=== PATIENT | female | born 1960 | race Caucasian/White ===

== ENCOUNTER 2017-04-12 12:23 | Emergency (ER) | payer OTHER ==
[~2017-04-12] VITALS: Wt 62.0 kg
[2017-04-12] MEDS ORDERED: HYDROCODONE/APAP (5/325) TAB PO ONE (13:00)
--- NOTE | 2017-04-12 13:49 | RADRPT ---
PROCEDURE: XR Tibia and Fibula. CLINICAL INDICATION: Right lower leg pain after trauma TECHNIQUE: 2 views of the right tibia and fibula are available for review. COMPARISON: None available FINDINGS: There is normal mineralization and alignment of the bones of the right tibia and fibula. There is n o evidence of acute fracture or dislocation. The suboptimally visualized joint spaces appear grossl y within normal limits. The soft tissues are unremarkable. IMPRESSION: 1. Unremarkable right tibia and fibula x-ray series. RPTAT: KK .Gene Rees MD, MD Date Time Electronically viewed and signed by .Gene Rees MD, on 04/12/2017 13:49 .B/
--- NOTE | 2017-04-12 13:49 | RADRPT ---
PROCEDURE: Right ankle series. CLINICAL INDICATION: Right ankle pain TECHNIQUE: Three views of the right ankle are available for review COMPARISON: None available FINDINGS: There is normal mineralization and alignment of the bones of the right ankle. No acute fracture or dislocation is seen. Joint spaces are well maintained. No osteophytes or erosions are identified. No joint effusion is identified. There is mild diffuse soft tissue swelling.. IMPRESSION: 1. Soft tissue swelling without evidence of fracture or dislocation. RPTAT: KK .Gene Rees MD, MD Date Time Electronically viewed and signed by .Gene Rees MD, on 04/12/2017 13:48 .B/
--- NOTE | 2017-04-12 13:50 | RADRPT ---
PROCEDURE: Right foot series. CLINICAL INDICATION: Right foot pain after trauma TECHNIQUE: Three views of the right foot are available for review. COMPARISON: None available FINDINGS: There is normal mineralization and alignment of the bones of the right foot. Lisfranc's joint appea rs intact. No acute fracture or dislocation is seen. The soft tissues are unremarkable. IMPRESSION: 1. Unremarkable right foot series. RPTAT: KK .Gene Rees MD, MD Date Time Electronically viewed and signed by .Gene Rees MD, MD on 04/12/2017 13:50 .B/
--- NOTE | 2017-04-12 14:00 | ERD ---
ER Documentation Chief Complaint Date/Time DATE: 04/12/17 TIME: 13:56 Chief Complaint RIGHT LEG/FOOT INJURY HPI This a 57-year-old female who presents the emergency department today complaining of right lower leg pain after she was at a store looking at [place] and a eight-foot granite slab fell downward on top of her leg. Denies any previous trauma. Denies any fevers or chills. ROS All systems reviewed and are negative except as per history of present illness. Medications Home Meds Active Scripts Acetaminophen* (Tylophen*) 500 Mg Capsule, 1 CAP PO Q6H Y for PAIN AND OR ELEVATED TEMP, #30 CAP Prov:ISMAEL COLON PA-C 04/12/17 Hydrocodone/Acetaminophen ([place] 5-325 Tablet) 1 Each Tablet, 1 TAB PO Q6H Y for PAIN, #10 TAB Prov:ISMAEL COLON PA-C 04/12/17 PMhx/Soc Medical and Surgical Hx: pt denies Surgical Hx Hx Respiratory Disorders: Yes (PULMONARY HYPERTENSION) Hx Alcohol Use: No Hx Substance Use: No Hx Tobacco Use: No Smoking Status: Never smoker Physical Exam Vitals Vital Signs Date Time Temp Pulse Resp B/P Pulse Ox O2 Delivery O2 Flow Rate FiO2 04/12/17 12:29 99.3 86 17 114/63 98 Physical Exam Const: NAD Head: Atraumatic Eyes: Normal Conjunctiva ENT: Normal External Ears, Nose and Mouth. Neck: Full range of motion..~ No meningismus. Resp: Clear to auscultation bilaterally Cardio: Regular rate and rhythm, no murmurs Abd: Soft, non tender, non distended. Normal bowel sounds Skin: Abrasion right tibia Back: No midline or flank tenderness Ext: Right leg with no obvious deformity. Effusion over lateral aspect of ankle. Pulses 2+. Distal neurovascularly intact. Neur: Awake and alert Psych: Normal Mood and Affect Results 24 hrs Current Medications Medications (Trade) Dose Ordered Sig/Rita Route PRN Reason Start Time Stop Time Status Last Admin Dose Admin Acetaminophen/ Hydrocodone Bitart ([place] (5/325)) 1 tab ONCE ONCE PO 04/12/17 13:00 04/12/17 13:01 DC 04/12/17 13:28 DIAGNOSTIC IMAGING REPORT Patient: CHAYO SULLIVAN : 1960 Age: 57 Sex: F MR #: [id number] DOS: 04/12/17 0000 Ordering MD: ISMAEL COLON PA-C Location: [facility] Room/Bed: PROCEDURE: Right ankle series. CLINICAL INDICATION: Right ankle pain TECHNIQUE: Three views of the right ankle are available for review COMPARISON: None available FINDINGS: There is normal mineralization and alignment of the bones of the right ankle. No acute fracture or dislocation is seen. Joint spaces are well maintained. No osteophytes or erosions are identified. No joint effusion is identified. There is mild diffuse soft tissue swelling.. IMPRESSION: 1. Soft tissue swelling without evidence of fracture or dislocation. RPTAT: KK .Gene Rees MD, MD Date Time Electronically viewed and signed by .Gene Rees MD, MD on 2016 13:48 .B/ CC: ISMAEL COLON PA-C DIAGNOSTIC IMAGING REPORT Patient: CHAYO SULLIVAN : 1960 Age: 57 Sex: F MR #: [id number] DOS: 04/12/17 0000 Ordering MD: ISMAEL COLON PA-C Location: [facility] Room/Bed: PROCEDURE: Right foot series. CLINICAL INDICATION: Right foot pain after trauma TECHNIQUE: Three views of the right foot are available for review. COMPARISON: None available FINDINGS: There is normal mineralization and alignment of the bones of the right foot. Lisfranc's joint appears intact. No acute fracture or dislocation is seen. The soft tissues are unremarkable. IMPRESSION: 1. Unremarkable right foot series. RPTAT: KK .Gene Rees MD, MD Date Time Electronically viewed and signed by .Gene Rees MD, MD on 2016 13:50 .B/ CC: ISMAEL COLON PA-C DIAGNOSTIC IMAGING REPORT Patient: CHAYO SULLIVAN : 1960 Age: 57 Sex: F MR #: [id number] DOS: 04/12/17 0000 Ordering MD: ISMAEL COLON PA-C Location: [facility] Room/Bed: PROCEDURE: XR Tibia and Fibula. CLINICAL INDICATION: Right lower leg pain after trauma TECHNIQUE: 2 views of the right tibia and fibula are available for review. COMPARISON: None available FINDINGS: There is normal mineralization and alignment of the bones of the right tibia and fibula. There is no evidence of acute fracture or dislocation. The suboptimally visualized joint spaces appear grossly within normal limits. The soft tissues are unremarkable. IMPRESSION: 1. Unremarkable right tibia and fibula x-ray series. RPTAT: KK .Gene Rees MD, MD Date Time Electronically viewed and signed by .Gene Rees MD, MD on 2016 13:49 .B/ CC: ISMAEL COLON PA-C Procedures/MDM This 57-year-old female who presents the emergency department today complaining of right lower leg pain after sustaining an injury earlier today when she was at a store when an 8 foot slap of [place] fell on top of her leg. Given that there was trauma and patient had significant amount of swelling over the lateral aspect of her ankle I did obtain imaging. Per the radiology report images of the right tibia and fibula are unremarkable. There is no evidence of acute fracture dislocation. Images of the right ankle show soft tissue swelling without evidence of fracture dislocation. There is no joint effusion. Images of the right foot are unremarkable. Lisfranc joint appears intact. There is no acute fracture dislocation. Soft tissues are unremarkable. Patient symptoms at this time is consistent with contusion versus sprain versus strain. Patient was given an [place] wrap here in the emergency department. She was given crutches to help ambulate. I also gave her [place] here in the emergency department. I will give her a short course home in addition to Tylenol as patient has scleroderma and has requested no NSAIDs At this time the patient is stable for discharge and outpatient management. Patient should follow up with their PCP in the next 1-2 days. They may return to the emergency department sooner for any persistent or worsening of symptoms. Patient understood and agreed with the plan. Departure Diagnosis: Primary Impression: Injury of right leg Encounter type: initial encounter Qualified Code: S89.91XA - Injury of right leg, initial encounter Condition: Fair ISMAEL COLON PA-C Apr 12, 2017 13:59
[2017-04-12] MEDS ORDERED: HYDR-906 PO (14:05)
[2017-04-12] MEDS ORDERED: ACET500C5 PO (14:05)
== END 2017-04-12 14:33 | disposition home or self-care (01) ==
LOC: FTE 12:23
DX: S89.91XA Unspecified injury of right lower leg, initial encounter (principal); W20.8XXA Other cause of strike by thrown, projected or falling object, initial encounter; Y92.512 Supermarket, store or market as the place of occurrence of the external cause
CPT/HCPCS: 73590; 73610; 73630; Z7610